=== PATIENT | female | born 1985 | race Caucasian/White ===

== ENCOUNTER → 2017-09-24 19:15 | Outpatient (CLI) | payer OTHER, SELFPAY ==
--- NOTE | 2017-09-24 19:17 | DI.MRI.S_ITS ---
PROCEDURE: MR FOOT RT WO CON INDICATIONS: Right foot pain in the 5th toe status post prior surgery. TECHNIQUE: Noncontrast sagittal T1 spin echo and T2 fast spin echo with fat saturation, long-axis T1 spin echo and T2 fast spin echo with fat saturation, short-axis T1 spin echo and T2 fast spin echo with fat saturation through the forefoot. COMPARISON: None. FINDINGS: Image quality: There is heterogeneous fat saturation limiting evaluation. Bones and joints: There is bone marrow edema within the 5th proximal and distal phalanges, with fusion of the 5th distal interphalangeal joint. Bony irregularity is demonstrated within the distal aspect of the 5th proximal phalanx which may represent postsurgical change or erosive changes. There is a small effusion at the 5th proximal interphalangeal joint with periarticular soft tissue swelling and edema. No evidence of metatarsal stress reaction or stress fractures. The sesamoid bones appear in expected positions, without internal edema. No metatarsophalangeal joint degeneration. No intraosseous mass lesions. Soft tissues: The visualized plantar foot muscles demonstrate normal signal and bulk. There is focal attenuation of the extensor digitorum longus tendon in the 5th digit compatible with partial tearing. Visualized flexor tendons appear intact, without tenosynovitis. The distal insertions of the peroneus brevis and longus tendons appear intact. The principal Lisfranc ligament appears intact. No soft tissue ganglion cysts or bursal fluid collections. Sagittal images demonstrate no evidence for plantar plate tears. IMPRESSION: 1. Bone marrow edema with within the 5th proximal and distal phalanges centered along the proximal interphalangeal joint which demonstrates a small joint effusion and periarticular soft tissue edema. The constellation of findings are suspicious for a septic arthritis and osteomyelitis. 2. Focal attenuation of the 5th toe extensor tendon compatible with partial tearing. Dictated by: Prabhu Abraham M.D. on 09/25/2017 at 11:44 Approved by: Prabhu Abraham M.D. on 09/25/2017 at 11:55
== END ==
PROVIDERS: Visit Provider Podiatrist
DX: M79.674 Pain in right toe(s) (principal); M89.8X7 Other specified disorders of bone, ankle and foot
CPT/HCPCS: 73718